=== PATIENT | male | born 1965 | race American Indian/Alaskan Native ===

== ENCOUNTER 2020-07-16 07:44 | Observation (INO) | payer OTHER ==
--- NOTE | 2020-07-16 08:02 | Event Note ---
ED Screening Note Date of service: 07/16/20 Time: 07:58 ED Screening Note: 55 yo male presen the ED with chief complaint of vision loss on the right eye that started 48 hours ago. Patient denies any weakness. Initial Triage NIH is 2. Other than visual deficits there are not other focal neurologic deficits. This initial assessment/diagnostic orders/clinical plan/treatment(s) is/are subject to change based on patients health status, clinical progression and re- assessment by fellow clinical providers in the ED. Further treatment and workup at subsequent clinical providers discretion. Patient/guardian urged not to elope from the ED as their condition may be serious if not clinically assessed and managed. Initial orders include: ED stroke protocol, triage blood sugar was elevated at 429. Discussed with ER attending Dr. Waddell who agreed with plan to work up stroke and agreed with no Code stroke being called due to symptoms being out of 24 hour window .
[2020-07-16] MEDS ORDERED: TETRACAINE 0.5% OPHTH SOLN 4ML OD STA (08:10)
[2020-07-16] MEDS ORDERED: FLUORESCEIN 1 MG STRIP OP ONE (08:10)
--- NOTE | 2020-07-16 08:11 | Emergency Department Report ---
ED General Adult HPI - General Chief complaint: Neuro Symptoms/Deficit Stated complaint: VISION LOSS IN RT EYE PUI?: No Time Seen by Provider: 07/16/20 08:02 Source: patient, RN notes reviewed Mode of arrival: Ambulatory Limitations: Physical Limitation - History of Present Illness Initial comments: The patient was evaluated in the emergency department for symptoms described in the history of present illness. He/she was evaluated in the context of the global COVID-19 pandemic, which necessitated consideration that the patient might be at risk for infection with the virus that causes COVID-19. Institutional protocols and algorithms that pertain to the evaluation of patients at risk for COVID-19 are in a state of rapid change based on information released by regulatory bodies including the CDC and federal and state organizations. These policies and algorithms were followed during the patient's care in the emergency department. Please note that these policies, procedures and recommendations changed on a rapid basis. This is a 55-year-old gentleman. He is not known to myself previously. He does not have a local primary care doctor. He presents to the ER with a complaint of 2 days painless visual loss in the right eye. He reports she has absolutely no perception of anything in his right eye. He has a mild headache. No neck pain. No chest pain. No fever. Positive dry cough. No loss of taste or smell. No focal extremity weakness/numbness. He states that over the weekend, he felt like his right lower extremity was "off", and reported that "it felt like all of my weight was in my calf." However, he does not have ataxia currently. His right-sided ocular loss of vision is constant, painless, does not radiate anywhere, does not have exacerbating, or relieving factors. -: Sudden, days(s) Location: eyes (Right eye) Consistency: constant Improves with: none Worsens with: none - Related Data Allergies Allergy/AdvReac Type Severity Reaction Status Date / Time No Known Allergies Allergy Unverified 07/16/20 07:57 ED Review of Systems ROS: Stated complaint: VISION LOSS IN RT EYE Other details as noted in HPI Constitutional: denies: fever Eyes: vision change. denies: eye pain, eye discharge Respiratory: cough. denies: shortness of breath Gastrointestinal: denies: abdominal pain Genitourinary: denies: dysuria Musculoskeletal: denies: back pain Neurological: headache. denies: weakness, numbness, paresthesias ED Past Medical Hx - Past Medical History Previous Medical History?: No - Surgical History Past Surgical History?: Yes Additional Surgical History: right thumb surgery - Social History Smoking Status: Never Smoker Substance Use Type: None ED Physical Exam - General Limitations: No Limitations General appearance: alert, in no apparent distress - Head Head exam: Present: atraumatic, normocephalic - Eye Eye exam: Present: normal appearance, EOMI, other (The right pupil does not react to light directly. The right pupil demonstrates consensual constriction. Left pupil demonstrates direct constriction.). Absent: nystagmus - ENT ENT exam: Present: normal exam, normal orophraynx, mucous membranes moist, normal external ear exam - Neck Neck exam: Present: normal inspection, full ROM. Absent: tenderness, meningismus - Respiratory Respiratory exam: Present: normal lung sounds bilaterally. Absent: respiratory distress, wheezes, rales, rhonchi, stridor, decreased breath sounds - Cardiovascular Cardiovascular Exam: Present: regular rate, normal rhythm, normal heart sounds. Absent: bradycardia, tachycardia, irregular rhythm, systolic murmur, diastolic murmur, rubs, gallop - GI/Abdominal GI/Abdominal exam: Present: soft. Absent: distended, tenderness, guarding, rebound, rigid, pulsatile mass - Rectal Rectal exam: Present: deferred - Extremities Exam Extremities exam: Present: normal inspection, full ROM, other (2+ pulses noted in the bilateral upper and lower extremities. There is no palpable cord. negative Homans sign. Muscular compartments are soft. The pelvis is stable.). Absent: pedal edema, calf tenderness - Back Exam Back exam: Present: normal inspection, full ROM. Absent: tenderness, CVA tenderness (R), CVA tenderness (L), paraspinal tenderness, vertebral tenderness - Neurological Exam Neurological exam: Present: alert, oriented X3, normal gait, other (There is no facial droop. The tongue is midline. Extraocular movements are intact b ilaterally. There is 5 out of 5 strength in bilateral upper and lower extremities. Sensation is intact to light touch bilateral upper and lower extremities. There is no past-pointing. There is no pronator drift.). Absent: motor sensory deficit - Psychiatric Psychiatric exam: Present: normal affect, normal mood, anxious - Skin Skin exam: Present: warm, dry, intact, normal color. Absent: rash ED Course Vital Signs 07/16/20 07/16/20 07:57 08:43 Temperature 98.3 F Pulse Rate 97 H 86 Respiratory 18 20 Rate Blood Pressure 171/109 Blood Pressure 147/96 [Right] O2 Sat by Pulse 97 97 Oximetry - Reevaluation(s) Reevaluation #1: 07/16/20 08:59 Differential diagnosis, including but not limited to: Retinal stroke, occipital stroke, glaucoma, retinal vein thrombosis, retinal artery thrombosis Assessment and plan: 55-year-old gentleman, with 2 days of painless monocular right-sided visual loss. He has an NIH score of 2, for complete right-sided visual loss. He is not a TPA candidate, as symptoms have been present for greater than 4.5 hours. His examination is not suggestive of a large vessel occlusion, and he is more than 24 hours out into his symptom course. Laboratory studies are pending at this time. Suspicious for afferent pupillary defect in the right pupil. Intraocular pressure with Sergio-Pen measured at 30, 31, and 18 mmHg. My bedside ocular ultrasound does not demonstrate any obvious posterior chamber bleeding, abnormal fluid collection, or retinal detachment. The optic nerve sheath appears to be 0.29 cm. I suspect that this is a stroke equivalent. However, given elevated intraocular pressures, I will discussed with ophthalmology on-call at [facility] to formulate an appropriate plan of care. Patient appears quite comfortable at this time. 07/16/20 09:11 07/16/20 09:31 discussed patient's history, physical, pertinent examination findings and CT scan findings, with ophthalmology on-call, Dr. Burgess. As anticipated, she advises emergent evaluation for possible stroke. Advises that patient may follow-up with an outpatient equipment maintenance engineer urgently once stroke work-up has been completed. Hospital physician, Dr. Adin Meyers to admit Laboratory studies demonstrate hyperglycemia, with pseudohyponatremia. Patient amenable to admission/hospitalization. Aspirin and insulin therapy ordered. Denies fever, loss of taste and smell, significant shortness of breath. Do not have a high suspicion for COVID-19 at this time. ED Medical Decision Making - Lab Data Result diagrams: 07/16/20 08:16 07/16/20 08:18 Vital Signs 07/16/20 07/16/20 07:57 08:43 Temperature 98.3 F Pulse Rate 97 H 86 Respiratory 18 20 Rate Blood Pressure 171/109 Blood Pressure 147/96 [Right] O2 Sat by Pulse 97 97 Oximetry Lab Results 07/16/20 07/16/20 07/16/20 Range/Units 07:59 08:16 08:16 WBC 8.1 (4.5-11.0) K/mm3 RBC 4.87 (3.65-5.03) M/mm3 Hgb 14.3 (11.8-15.2) gm/dl Hct 42.2 (35.5-45.6) % MCV 87 (84-94) fl MCH 29 (28-32) pg MCHC 34 (32-34) % RDW 13.3 (13.2-15.2) % Plt Count 208 (140-440) K/mm3 Lymph % (Auto) 23.5 (13.4-35.0) % [place] % (Auto) 15.7 H (0.0-7.3) % Eos % (Auto) 0.8 (0.0-4.3) % Baso % (Auto) 0.3 (0.0-1.8) % Lymph # (Auto) 1.9 (1.2-5.4) K/mm3 [place] # (Auto) 1.3 H (0.0-0.8) K/mm3 Eos # (Auto) 0.1 (0.0-0.4) K/mm3 Baso # (Auto) 0.0 (0.0-0.1) K/mm3 Seg Neutrophils % 59.7 (40.0-70.0) % Seg Neutrophils # 4.8 (1.8-7.7) K/mm3 PT 12.6 (12.2-14.9) Sec. INR 0.96 (0.87-1.13) APTT 27.9 (24.2-36.6) Sec. Thrombin Time 15.3 (15.1-19.6) Sec. POC Glucose 429 H (70-105) mg/dL - EKG Data -: EKG Interpreted by Co EKG shows normal: sinus rhythm Rate: normal - EKG Data When compared to previous EKG there are: previous EKG unavailable - Radiology Data Radiology results: report reviewed, image reviewed CT HEAD WITHOUT CONTRAST INDICATION / CLINICAL INFORMATION: Stroke symptoms. TECHNIQUE: All CT scans at this location are performed using CT dose reduction for ALARA by means of automated exposure control. COMPARISON: None available. FINDINGS: HEMORRHAGE: No evidence of intracranial hemorrhage or extra-axial fluid collection. EXTRA-AXIAL SPACES: Cortical sulci, sylvian fissures and basilar cisterns have an unremarkable appearance. VENTRICULAR SYSTEM: The third and lateral ventricles are of normal size and configuration. CEREBRAL PARENCHYMA: Extensive periventricular and deep white matter lucencies noted consistent with advanced microvascular ischemic change in excess of that expected the patient's age of 55 years. There is evidence of remote small deep infarction in the anterior lateral aspect of the left thalamus. No additional areas of abnormal brain parenchymal attenuation are identified. MIDLINE SHIFT OR HERNIATION: There is no mass effect. CEREBELLUM / BRAINSTEM: Brainstem and cerebellum have an unremarkable appearance. MIDLINE STRUCTURES:No abnormalities of the pituitary gland or pineal region are identified. INTRACRANIAL VESSELS:No abnormalities are identified on this noncontrast head CT. ORBITS: visualized portions of the orbits have an unremarkable appearance. SOFT TISSUES of HEAD: No significant abnormality. CALVARIUM: Evaluation of bone windows reveals no abnormalities. PARANASAL SINUSES / MASTOID AIR CELLS: Visualized portions of the paranasal sinuses are free from inflammatory mucosal disease. Mastoid air cells are normally pneumatized. ADDITIONAL FINDINGS: None. IMPRESSION: 1. Advanced microvascular ischemic change. 2. Remote small deep infarction left thalamus. 3. No acute intracranial abnormalities are identified. Signer Name: Kenyon Diez MD Signed: 07/16/2020 7:48 AM Workstation Name: [email or web address] X-ray the chest is negative for acute findings. Critical care attestation.: If time is entered above; I have spent that time in minutes in the direct care of this critically ill patient, excluding procedure time. ED Disposition Clinical Impression: Hyperglycemia Loss, vision, sudden Qualifiers: Laterality: right Qualified Code(s): H53.131 - Sudden visual loss, right eye CVA (cerebral vascular accident) Qualifiers: CVA mechanism: unspecified Qualified Code(s): I63.9 - Cerebral infarction, unspecified Disposition: DC-09 OP ADMIT IP TO THIS HOSP Is pt being admited?: Yes Does the pt Need Aspirin: No Condition: Good - Assessment Assessment Interval: Baseline - Level of Consciousness 1a. Level of Consciousness: alert/keenly responsive - LOC Questions 1b. LOC Questions: answers both correctly - LOC Command 1c. LOC Commands: performs tasks correctly - Best Gaze 2. Best Gaze: normal - Visual 3. Visual: complete hemianopia - Facial Palsy 4. Facial Palsy: normal symmetrical movement - Motor Arm 5a. Motor Arm Left: no drift 5b. Motor Arm Right: no drift - Motor Leg 6a. Motor Leg Left: no drift 6b. Motor Leg Right: no drift - Limb Ataxia 7. Limb Ataxia: absent - Sensory 8. Sensory: normal - Best Language 9. Best Language: no aphasia - Dysarthria 10. Dysarthria: normal - Extinction and Inattention 11. Extinction/Inattention: no abnormality - Scoring Total Score: 2 Stroke Severity: Minor Stroke
[2020-07-16 08:28] LABS: Basophils % (Auto) 0.3 % (0.0-1.8); Eosinophils # (Auto) 0.1 K/mm3 (0.0-0.4); Eosinophils % (Auto) 0.8 % (0.0-4.3); Hematocrit 42.2 % (35.5-45.6); Hemoglobin 14.3 gm/dl (11.8-15.2); Lymphocytes # (Auto) 1.9 K/mm3 (1.2-5.4); Lymphocytes % (Auto) 23.5 % (13.4-35.0); Mean Corpuscular HGB Conc 34 % (32-34); Mean Corpuscular Volume 87 fl (84-94); Monocytes # (Auto) 1.3 K/mm3 (0.0-0.8); Monocytes % (Auto) 15.7 % (0.0-7.3); Platelet Count 208 K/mm3 (140-440); Red Blood Count 4.87 M/mm3 (3.65-5.03); Red Cell Distribution Width 13.3 % (13.2-15.2)
[2020-07-16 08:38] LABS: INR 0.96 (0.87-1.13)
[2020-07-16 08:39] LABS: Partial Thromboplastin Time 27.9 Sec. (24.2-36.6); Thrombin Time 15.3 Sec. (15.1-19.6)
--- NOTE | 2020-07-16 08:52 | Cat Scan Report ---
CT HEAD WITHOUT CONTRAST INDICATION / CLINICAL INFORMATION: Stroke symptoms. TECHNIQUE: All CT scans at this location are performed using CT dose reduction for ALARA by means of automated e xposure control. COMPARISON: None available. FINDINGS: HEMORRHAGE: No evidence of intracranial hemorrhage or extra-axial fluid collection. EXTRA-AXIAL SPACES: Cortical sulci, sylvian fissures and basilar cisterns have an unremarkable appear ance. VENTRICULAR SYSTEM: The third and lateral ventricles are of normal size and configuration. CEREBRAL PARENCHYMA: Extensive periventricular and deep white matter lucencies noted consistent with advanced microvascular ischemic change in excess of that expected the patient's age of 55 years. Ther e is evidence of remote small deep infarction in the anterior lateral aspect of the left thalamus. No additional areas of abnormal brain parenchymal attenuation are identified. MIDLINE SHIFT OR HERNIATION: There is no mass effect. CEREBELLUM / BRAINSTEM: Brainstem and cerebellum have an unremarkable appearance. MIDLINE STRUCTURES:No abnormalities of the pituitary gland or pineal region are identified. INTRACRANIAL VESSELS:No abnormalities are identified on this noncontrast head CT. ORBITS: visualized portions of the orbits have an unremarkable appearance. SOFT TISSUES of HEAD: No significant abnormality. CALVARIUM: Evaluation of bone windows reveals no abnormalities. PARANASAL SINUSES / MASTOID AIR CELLS: Visualized portions of the paranasal sinuses are free from inf lammatory mucosal disease. Mastoid air cells are normally pneumatized. ADDITIONAL FINDINGS: None. IMPRESSION: 1. Advanced microvascular ischemic change. 2. Remote small deep infarction left thalamus. 3. No acute intracranial abnormalities are identified. Signer Name: Kenyon Diez MD Signed: 07/16/2020 8:48 AM Workstation Name: [id number]
[2020-07-16 09:27] LABS: BUN/Creatinine Ratio 11; Blood Urea Nitrogen 10 mg/dL (9-20); Calcium 9.2 mg/dL (8.4-10.2); Hemolysis Index 4
[2020-07-16] MEDS ORDERED: INSULIN REGULAR, HUMAN 100 UNITS/1 ML IV ONE (09:29)
[2020-07-16] MEDS ORDERED: ASPIRIN 81 MG TAB CHEW PO ONE (09:29)
--- NOTE | 2020-07-16 10:04 | XRay Report ---
CHEST 1 VIEW 07/16/2020 8:58 AM INDICATION / CLINICAL INFORMATION: cough. COMPARISON: None available. FINDINGS: SUPPORT DEVICES: None. HEART / MEDIASTINUM: No significant abnormality. LUNGS / PLEURA: No significant pulmonary or pleural abnormality. No pneumothorax. ADDITIONAL FINDINGS: Moderate arthrosis of the right shoulder and AC joint. IMPRESSION: 1. No acute findings. Signer Name: Joe Guerra MD Signed: 07/16/2020 9:59 AM Workstation Name: [id number]
[2020-07-16] MEDS ORDERED: ACETAMINOPHEN 325 MG TAB PO PRN (10:36)
[2020-07-16] MEDS ORDERED: METOCLOPRAMIDE 10 MG TAB PO PRN (10:36)
[2020-07-16] MEDS ORDERED: ONDANSETRON 4 MG/2 ML INJ IV PRN (10:36)
[2020-07-16] MEDS ORDERED: MAGNESIUM HYDROXIDE (MOM) ORAL LIQD UDC PO PRN (10:36)
[2020-07-16] MEDS ORDERED: PROMETHAZINE 25 MG RECT SUPP PR PRN (10:36)
[2020-07-16] MEDS ORDERED: DEXTROSE 50% IN WATER (25GM) 50 ML SYRINGE IV PRN (10:36)
--- NOTE | 2020-07-16 10:52 | History and Physical Report ---
History of Present Illness Date of admission: 07/16/20 09:34 History of present illness: This is a 55-year-old gentleman with no known medical history who presented to the emergency department on 07/16 with complaints of a 2-day history of painless visual loss in his right eye, mild headache, occasional dry cough and bilateral lower extremity ataxia and right hand numbness experienced on 07/13. Upon arrival to the emergency department patient had hypertensive urgency at 171/109. Work- up in the emergency department revealed hyperglycemia (BG 409), pseudohyponatremia (sodium 129) hypochloremia at 90. Patient underwent a CT head which showed microvascular ischemic changes and a remote small deep infarct in the left thalamus. Telemetry neurology was consulted and stroke protocol was initiated. Upon further examination of his right eye in the emergency department he was found to have elevated intraocular pressures and ophthalmology recommended outpatient follow-up at [facility] post discharge. His NIHSS in the e mergency department was 2. Patient will be admitted to the hospital service with a consult to neurology for further work-up. Advance care planning conducted in the emergency department. No prior visits to review. Past History Past Medical History: No medical history Past Surgical History: Other (Stitching to right thumb after injury) Social history: , lives with family, full code. denies: smoking, alcohol abuse, prescription drug abuse, IV drug use Family history: cancer, diabetes, hypertension, other (Heart failure) Medications and Allergies Allergies Allergy/AdvReac Type Severity Reaction Status Date / Time No Known Allergies Allergy Unverified 07/16/20 07:57 Active Meds: Active Medications Acetaminophen (Acetaminophen 325 Mg Tab) 650 mg PO Q4H PRN PRN Reason: Pain, Mild (1-3) Aspirin (Aspirin 325 Mg Tab) 325 mg PO QDAY LIAM Atorvastatin Calcium (Atorvastatin 40 Mg Tab) 40 mg PO QHS LIAM Bisacodyl (Bisacodyl 10 Mg Rect Supp) 10 mg VA QDAY PRN PRN Reason: Constipation Dextrose (Dextrose 50% In Water (25gm) 50 Ml Syringe) 50 ml IV Q30MIN PRN; Protocol PRN Reason: Hypoglycemia Docusate Sodium (Docusate Sodium 100 Mg Cap) 100 mg PO BID LIAM Famotidine (Famotidine 20 Mg Tab) 20 mg PO BID ILAM Sodium Chloride (Nacl 0.45% 1000 Ml) 1,000 mls @ 75 mls/hr IV DIRECT LIAM Stop: 07/17/20 00:19 Insulin Human Regular (Insulin Regular, Human 100 Units/1 Ml) 0 units SUB-Q ACHS LIAM; Protocol Magnesium Hydroxide (Magnesium Hydroxide (Mom) Oral Liqd Udc) 30 ml PO Q4H PRN PRN Reason: Constipation Metoclopramide HCl (Metoclopramide 10 Mg Tab) 10 mg PO Q6H PRN PRN Reason: Nausea And Vomiting Ondansetron HCl (Ondansetron 4 Mg/2 Ml Inj) 4 mg IV Q8H PRN PRN Reason: Nausea And Vomiting Promethazine HCl (Promethazine 25 Mg Rect Supp) 25 mg VA Q6H PRN PRN Reason: Nausea And Vomiting Sodium Chloride (Sodium Chloride 0.9% 10 Ml Flush Syringe) 10 ml INJ PRN PRN PRN Reason: LINE FLUSH Review of Systems Constitutional: no weight loss, no weight gain, no fever, no chills, no sweats, no night sweats, no anorexia, no fatigue, no weakness, no chronic headaches Eyes: right: loss of vision Ears, nose, mouth and throat: no ear pain, no ear discharge, no tinnitis, no decreased hearing, no nose pain, no nasal congestion, no nasal discharge, no sinus pressure, no sinus pain, no epistaxis, no bleeding gums, no sore throat, no post-nasal drip, no vertigo Cardiovascular: no chest pain, no orthopnea, no palpitations, no rapid/irregular heart beat, no edema, no syncope, no lightheadedness, no shortness of breath, no dyspnea on exertion, no high blood pressure, no leg edema Respiratory: no cough, no cough with sputum, no excessive sputum, no hemoptysis, no shortness of breath, no dyspnea on exertion, no congestion, no wheezing, no pain on inspiration Gastrointestinal: no abdominal pain, no nausea, no vomiting, no diarrhea, no constipation, no change in bowel habits, no hematemesis, no coffee ground emes is, no BRBPR, no melena, no hematochezia, no loss of appetite, no heartburn Genitourinary Male: no dysuria, no hematuria, no flank pain, no discharge, no urinary frequency, no urinary hesitancy, no nocturia, no incontinence, no polyuria Rectal: no pain, no incontinence, no bleeding, no itching, no hemorrhoids Musculoskeletal: arm numbness/tingling, leg numbness/tingling, no neck stiffness, no neck pain, no shooting arm pain, no low back pain, no shooting leg pain, no morning stiffness, no muscle weakness, no muscle cramps, no limitation of motion, no frequent falls, no fractures, no loss of height, no prior amputations Integumentary: no pruritis, no redness, no sores, no wounds, no jaundice, no boils, no blisters, no dryness Neurological: numbness (Right hand), ataxia (Bilateral lower extremities), headaches (X1 after loss of vision), sensory deficit, loss of vision (To right eye), no head injury, no transient paralysis, no vertigo, no confusion, no memory loss, no changes in smell/taste Psychiatric: no anxiety, no memory loss, no insomnia, no hypersomnia, no change in appetite, no hallucinations, no paranoia, no depression, no hopelessness Endocrine: no polyphagia, no excessive thirst, no polydipsia, no polyuria, no nocturia, no flushing, no palpatations Hematologic/Lymphatic: no easy bruising, no easy bleeding Allergic/Immunologic: no allergic rhinitis, no wheezing, no persistent infections, no anaphylaxis Exam - Constitutional Vitals: Temp Pulse Resp BP Pulse Ox 98.3 F 86 20 147/96 97 07/16/20 07:57 07/16/20 08:43 07/16/20 08:43 07/16/20 08:43 07/16/20 08:43 General appearance: Present: no acute distress - EENT Eyes: Absent: PERRL (Left eye: Pupil round, reactive to light and accommodation with intact EOM. Right eye with vision loss, pupil round but not reactive to light or accommodation without intact EOM), EOM intact, scleral icterus, conjunctival injection, miosis, mydriasis ENT: hearing intact, clear oral mucosa, poor dentition - Neck Neck: Present: normal ROM - Respiratory Respiratory effort: normal Respiratory: bilateral: CTA - Cardiovascular Rhythm: regular Heart Sounds: Present: S1 & S2. Absent: systolic murmur, diastolic murmur - Extremities Extremities: no ischemia, pulses intact, pulses symmetrical, No edema, normal temperature, normal color, Full ROM Peripheral Pulses: within normal limits - Abdominal General gastrointestinal: Present: soft, non-tender, non-distended, normal bowel sounds - Integumentary Integumentary: Present: clear, warm, dry - Musculoskeletal Musculoskeletal: strength equal bilaterally - Psychiatric Psychiatric: appropriate mood/affect, memory intact, cooperative - Neurologic Neurologic: CNII-XII intact, no focal deficits, moves all extremities - Allied Health Allied health notes reviewed: nursing HEART Score - HEART Score Troponin: Troponin T < 0.010 ng/mL (0.00-0.029) 07/16/20 08:18 Results - Labs CBC & Chem 7: 07/16/20 08:16 07/16/20 08:18 Labs: Laboratory Last Values WBC 8.1 K/mm3 (4.5-11.0) 07/16/20 08:16 RBC 4.87 M/mm3 (3.65-5.03) 07/16/20 08:16 Hgb 14.3 gm/dl (11.8-15.2) 07/16/20 08:16 Hct 42.2 % (35.5-45.6) 07/16/20 08:16 MCV 87 fl (84-94) 07/16/20 08:16 MCH 29 pg (28-32) 07/16/20 08:16 MCHC 34 % (32-34) 07/16/20 08:16 RDW 13.3 % (13.2-15.2) 07/16/20 08:16 Plt Count 208 K/mm3 (140-440) 07/16/20 08:16 Lymph % (Auto) 23.5 % (13.4-35.0) 07/16/20 08:16 [place] % (Auto) 15.7 % (0.0-7.3) H 07/16/20 08:16 Eos % (Auto) 0.8 % (0.0-4.3) 07/16/20 08:16 Baso % (Auto) 0.3 % (0.0-1.8) 07/16/20 08:16 Lymph # (Auto) 1.9 K/mm3 (1.2-5.4) 07/16/20 08:16 [place] # (Auto) 1.3 K/mm3 (0.0-0.8) H 07/16/20 08:16 Eos # (Auto) 0.1 K/mm3 (0.0-0.4) 07/16/20 08:16 Baso # (Auto) 0.0 K/mm3 (0.0-0.1) 07/16/20 08:16 Seg Neutrophils % 59.7 % (40.0-70.0) 07/16/20 08:16 Seg Neutrophils # 4.8 K/mm3 (1.8-7.7) 07/16/20 08:16 PT 12.6 Sec. (12.2-14.9) 07/16/20 08:16 INR 0.96 (0.87-1.13) 07/16/20 08:16 APTT 27.9 Sec. (24.2-36.6) 07/16/20 08:16 Thrombin Time 15.3 Sec. (15.1-19.6) 07/16/20 08:16 Sodium 129 mmol/L (137-145) L 07/16/20 08:18 Potassium 4.3 mmol/L (3.6-5.0) 07/16/20 08:18 Chloride 90.0 mmol/L (98-107) L 07/16/20 08:18 Carbon Dioxide 29 mmol/L (22-30) 07/16/20 08:18 Anion Gap 14 mmol/L 07/16/20 08:18 BUN 10 mg/dL (9-20) 07/16/20 08:18 Creatinine 0.9 mg/dL (0.8-1.3) 07/16/20 08:18 Estimated GFR > 60 ml/min 07/16/20 08:18 BUN/Creatinine Ratio 11 % 07/16/20 08:18 Glucose 490 mg/dL (75-100) H 07/16/20 08:18 POC Glucose 429 mg/dL (70-105) H 07/16/20 07:59 Calcium 9.2 mg/dL (8.4-10.2) 07/16/20 08:18 Magnesium 1.90 mg/dL (1.7-2.3) 07/16/20 08:18 Total Creatine Kinase 65 units/L (55-170) 07/16/20 08:18 Troponin T < 0.010 ng/mL (0.00-0.029) 07/16/20 08:18 - Imaging and Cardiology CT Scan - head: report reviewed MRI - head: report reviewed Imaging and Cardiology: -07/16 CT head without contrast shows advanced microvascular ischemic changes, remote small deep infarction of the left thalamus, and no acute intracranial abnormalities identified -07/16 MRA/MRV head without contrast shows focal areas of narrowing suggested in the carotid foramen regions bilaterally, there is a mild narrowing in the communicating portions of both internal carotid arteries which were not felt to be hemodynamically significant -07/16 MRI/MRV neck without contrast shows no significant stenosis appreciated on this unenhanced MRI of the neck -07/16 MRI brain contrast shows remote left thalamic lacunar infarct with chronic microvascular disease -07/16 SABINA pending Assessment and Plan Assessment and plan: CVA -07/16 CT head shows advanced microvascular ischemic change in correlation to age, remote small deep infarction left thalamus, no acute intracranial abnormalities are identified. -Neurology consulted, appreciate recommendation -S/p patient 325mg aspirin in the ED -Initiated aspirin and statin therapy -Stroke protocol initiated -07/16 lipid panel pending -07/16 ST/OT/PT consulted -Permissive hypertension for 24 to 48 hours -Maintain euglycemia and euthymia -Accu-Cheks every 4 for 24 hours then AC at bedtime -Aspiration/fall/seizure precautions -07/16 CT head without contrast shows advanced microvascular ischemic changes, remote small deep infarction of the left thalamus, and no acute intracranial abnormalities identified -07/16 MRA/MRV head without contrast shows focal areas of narrowing suggested in the carotid foramen regions bilaterally, there is a mild narrowing in the communicating portions of both internal carotid arteries which were not felt to be hemodynamically significant -07/16 MRI/MRV neck without contrast shows no significant stenosis appreciated on this unenhanced MRI of the neck -07/16 MRI brain without contrast shows remote left thalamic lacunar infarct with chronic microvascular disease -07/16 SABINA pending Hyperglycemia -07/16 hemoglobin A1c pending -Accu-Cheks q. 24 for 24 hours then AC at bedtime -SSI -CC diet pending ST evaluation -Hypoglycemia protocol Hyponatremia/pseudohyponatremia -Presented with a sodium of 129 -Corrected sodium 135 -Trend sodium Hypochloremia -Presented with a chloride of 90 -Trend BMP DVT prophylaxis -GI prophylaxis -SCDs to bilateral lower extremities while in bed -Lovenox subcu Full code VTE prophylaxis?: Chemical, Mechanical Plan of care discussed with patient/family: Yes
--- NOTE | 2020-07-16 10:52 | Consultation ---
Medications and Allergies Allergies Allergy/AdvReac Type Severity Reaction Status Date / Time No Known Allergies Allergy Unverified 07/16/20 07:57 Active Meds: Active Medications Acetaminophen (Acetaminophen 325 Mg Tab) 650 mg PO Q4H PRN PRN Reason: Pain, Mild (1-3) Aspirin (Aspirin 325 Mg Tab) 325 mg PO QDAY LIAM Atorvastatin Calcium (Atorvastatin 40 Mg Tab) 40 mg PO QHS LIAM Bisacodyl (Bisacodyl 10 Mg Rect Supp) 10 mg CA QDAY PRN PRN Reason: Constipation Dextrose (Dextrose 50% In Water (25gm) 50 Ml Syringe) 50 ml IV Q30MIN PRN; Protocol PRN Reason: Hypoglycemia Docusate Sodium (Docusate Sodium 100 Mg Cap) 100 mg PO BID LIAM Famotidine (Famotidine 20 Mg Tab) 20 mg PO BID LIAM Insulin Human Regular (Insulin Regular, Human 100 Units/1 Ml) 0 units SUB-Q ACHS LIAM; Protocol Magnesium Hydroxide (Magnesium Hydroxide (Mom) Oral Liqd Udc) 30 ml PO Q4H PRN PRN Reason: Constipation Metoclopramide HCl (Metoclopramide 10 Mg Tab) 10 mg PO Q6H PRN PRN Reason: Nausea And Vomiting Ondansetron HCl (Ondansetron 4 Mg/2 Ml Inj) 4 mg IV Q8H PRN PRN Reason: Nausea And Vomiting Promethazine HCl (Promethazine 25 Mg Rect Supp) 25 mg CA Q6H PRN PRN Reason: Nausea And Vomiting Sodium Chloride (Sodium Chloride 0.9% 10 Ml Flush Syringe) 10 ml INJ PRN PRN PRN Reason: LINE FLUSH Physical Examination - Vital Signs Vital Signs: Vital Signs Temp Pulse Resp BP Pulse Ox 98.3 F 97 H 18 171/109 97 07/16/20 07:57 07/16/20 07:57 07/16/20 07:57 07/16/20 07:57 07/16/20 07:57 Results - Laboratory Findings CBC and BMP: 07/16/20 08:16 07/16/20 08:18 Abnormal Lab Findings: Abnormal Labs 07/16/20 07/16/20 07/16/20 07:59 08:16 08:18 [place] % (Auto) 15.7 H [place] # (Auto) 1.3 H Sodium 129 L Chloride 90.0 L Glucose 490 H POC Glucose 429 H Assessment and Plan [facility] Tele[facility]rology Consult Services Stat Consult Date of Service: 07/16/2020 09:33:33 Impression: I63.0 - 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 Recommendations: Antiplatelet Therapy Imaging Studies: MRI Head with and Without Contrast MRA Head and Neck Without Contrast When Available - Stroke Protocol Echocardiogram - Transthoracic Echocardiogram Therapies: Physical Therapy, Occupational Therapy, Speech Therapy Assessment When Applicable Disposition: Neurology Follow Up Recommended Sign Out: Discussed with Emergency Department Provider Chief Complaint: R eye vision abnormality History of Present Illness: Patient is a 55 year old Male. 55 yo M h/o likely undiagnosed HTN, DM p/w R eye vision abnormality w onset 07/14. PT c/o R hand numbness for a few days. He had flu symptoms recently, was taking theraflu. Pt c/o R side headache. Anticoagulant use: No Antiplatelet use: No Examination: BP(172/109), Pulse(85), Blood Glucose(unknown) 1A: Level of Consciousness - Alert; keenly responsive + 0 1B: Ask Month and Age - Both Questions Right + 0 1C: Blink Eyes & Squeeze Hands - Performs Both Tasks + 0 2: Test Horizontal Extraocular Movements - Normal + 0 3: Test Visual Gates - Complete Hemianopia + 2 4: Test Facial Palsy (Use Grimace if Obtunded) - Normal symmetry + 0 5A: Test Left Arm Motor Drift - No Drift for 10 Seconds + 0 5B: Test Right Arm Motor Drift - No Drift for 10 Seconds + 0 6A: Test Left Leg Motor Drift - No Drift for 5 Seconds + 0 6B: Test Right Leg Motor Drift - No Drift for 5 Seconds + 0 7: Test Limb Ataxia (FNF/Heel-Whipple) - No Ataxia + 0 8: Test Sensation - Normal; No sensory loss + 0 9: Test Language/Aphasia - Normal; No aphasia + 0 10: Test Dysarthria - Normal + 0 11: Test Extinction/Inattention - No abnormality + 0 NIHSS Score: 2 Patient/Family was informed the Neurology Consult would occur via TeleHealth consult by way of interactive audio and video telecommunications and consented to receiving care in this manner. Due to the immediate potential for life-threatening deterioration due to underlying acute neurologic illness, I spent 30 minutes providing critical care. This time includes time for face to face visit via telemedicine, review of m edical records, imaging studies and discussion of findings with providers, the patient and/or family. Dr Shanda Crowley [facility] Case [id number]
[2020-07-16] MEDS ORDERED: SODIUM CHLORIDE 0.45% 1000 ML 1,000 ML IV SCH (11:00)
[2020-07-16 11:23] LABS: Chol/HDL Ratio 6.81 %
[2020-07-16] MEDS: INSULIN REGULAR, HUMAN 100 UNITS/1 ML SUB-Q SCH ×5 (13:23→22:39)
--- NOTE | 2020-07-16 14:06 | Magnetic Resonance Report ---
MR MRA/MRV head wo con INDICATION / CLINICAL INFORMATION: 55 years Male; MAIN. TECHNIQUE: 3-D time of flight. NASCET type criteria used to evaluate stenoses. Some motion artifact present. COMPARISON: None available. FINDINGS: INTERNAL CAROTID ARTERIES: Focal areas of narrowing are suggested in the carotid foramen regions bila terally-these are common locations for flow artifact. CTA of the head may be helpful for further eval uation. Areas of mild narrowing are seen in the communicating portions of both internal carotid arteries, not felt to be hemodynamically significant. VERTEBROBASILAR SYSTEM: No significant narrowing appreciated. DISTAL BRANCHES: Distal branches of the anterior, middle, and posterior cerebral arteries are fairly symmetric in appearance and number. ANEURYSM: None identified. IMPRESSION: Some areas of narrowing suggested in the internal carotid arteries bilaterally, some of which may be related to flow artifact. CTA of the head may be helpful for further evaluation, if clinically warran kinjal. Signer Name: Delmar Thomas MD, III Signed: 07/16/2020 2:02 PM Workstation Name: [id number]
--- NOTE | 2020-07-16 14:07 | Magnetic Resonance Report ---
MR brain wo/w con INDICATION / CLINICAL INFORMATION: Stroke.. TECHNIQUE: Multiplanar, multisequence MR images of the brain were obtained. COMPARISON: CT head 07/16/2020 FINDINGS: INTRACRANIAL: No restricted diffusion. No hemorrhage. Ventricular caliber is normal. No extra-axial c ollection. No mass. No herniation. Major intracranial vascular flow voids are preserved. Remote left thalamic lacunar infarction. Periventricular and centrum semiovale T2 white matter hyperintensities m ost consistent with sequela of chronic microvascular disease. ORBITS: No significant abnormality of visualized orbits. SINUSES / MASTOIDS: No significant abnormality of visualized sinuses and mastoid air cells. ADDITIONAL FINDINGS: None. IMPRESSION: 1. No acute intracranial abnormality. Signer Name: Song Goldman MD Signed: 07/16/2020 2:03 PM Workstation Name: [id number]
--- NOTE | 2020-07-16 14:12 | Magnetic Resonance Report ---
MR MRA/MRV neck wo con INDICATION / CLINICAL INFORMATION: 55 years Male; MAIN. TECHNIQUE: 2-D time of flight performed prior to contrast. NASCET criteria used for stenosis evaluati on. COMPARISON: None available. FINDINGS: ARCH: Aortic arch and proximal great vessels are not well visualized on this exam. However, a bovine type arch is suggested. CAROTID ARTERIES: The visualized common and internal carotid arteries are widely patent. VERTEBRAL ARTERIES: Slight left dominant vertebral system seen. No significant stenosis appreciated, although the origin of the right vertebral artery is difficult to visualize. IMPRESSION: No significant stenosis appreciated on this unenhanced MRA of the neck. Signer Name: Delmar Thomas MD, III Signed: 07/16/2020 2:08 PM Workstation Name: [id number]
--- NOTE | 2020-07-16 15:13 | Consultation ---
History of Present Illness Consult date: 07/16/20 Reason for Consult: R Visual Loss Chief complaint: Right Eye Blindness History of present illness: 55 yo male with no known medical history who presents with acute painless loss of vision of the right eye. He cannot see anything from his right eye. He cannot tell light from dark with his right eye. Onset was on Monday night (07/14/20). He denies any other neurologic symptoms at this time and he notes no headache, scalp tenderness or jaw claudication. ; Past History Past Medical History: No medical history Past Surgical History: Other (Stitching to right thumb after injury) Social history: , lives with family, full code. denies: smoking, alcohol abuse, prescription drug abuse, IV drug use Family history: cancer, diabetes, hypertension, other (Heart failure) Medications and Allergies Allergies Allergy/AdvReac Type Severity Reaction Status Date / Time No Known Allergies Allergy Unverified 07/16/20 07:57 Active Meds: Active Medications Acetaminophen (Acetaminophen 325 Mg Tab) 650 mg PO Q4H PRN PRN Reason: Pain, Mild (1-3) Aspirin (Aspirin 325 Mg Tab) 325 mg PO QDAY LIAM Atorvastatin Calcium (Atorvastatin 40 Mg Tab) 40 mg PO QHS LIAM Bisacodyl (Bisacodyl 10 Mg Rect Supp) 10 mg [place] QDAY PRN PRN Reason: Constipation Dextrose (Dextrose 50% In Water (25gm) 50 Ml Syringe) 50 ml IV Q30MIN PRN; Protocol PRN Reason: Hypoglycemia Docusate Sodium (Docusate Sodium 100 Mg Cap) 100 mg PO BID LIAM Enoxaparin Sodium (Enoxaparin 60 Mg/0.6 Ml Inj) 60 mg SUB-Q QDAY LIAM; Protocol Famotidine (Famotidine 20 Mg Tab) 20 mg PO BID LIAM Sodium Chloride (Nacl 0.45% 1000 Ml) 1,000 mls @ 75 mls/hr IV DIRECT LIAM Stop: 07/17/20 00:19 Insulin Human Regular (Insulin Regular, Human 100 Units/1 Ml) 0 units SUB-Q ACHS LIAM; Protocol Last Admin: 07/16/20 14:17 Dose: 4 units Documented by: Magnesium Hydroxide (Magnesium Hydroxide (Mom) Oral Liqd Udc) 30 ml PO Q4H PRN PRN Reason: Constipation Metoclopramide HCl (Metoclopramide 10 Mg Tab) 10 mg PO Q6H PRN PRN Reason: Nausea And Vomiting Ondansetron HCl (Ondansetron 4 Mg/2 Ml Inj) 4 mg IV Q8H PRN PRN Reason: Nausea And Vomiting Promethazine HCl (Promethazine 25 Mg Rect Supp) 25 mg IL Q6H PRN PRN Reason: Nausea And Vomiting Sodium Chloride (Sodium Chloride 0.9% 10 Ml Flush Syringe) 10 ml IV PRN PRN PRN Reason: LINE FLUSH Review of Systems All systems: negative (as per HPI;) Physical Examination - Vital Signs Vital Signs: Vital Signs Temp Pulse Resp BP Pulse Ox 98.3 F 97 H 18 171/109 97 07/16/20 07:57 07/16/20 07:57 07/16/20 07:57 07/16/20 07:57 07/16/20 07:57 - Physical Exam Narrative exam: Gen: nad, well-nourished; Head: normocephalic; Eyes: no gaze deviation; no ptosis; ENT: normal vocalization; CVS: warm and well-perfused; Pulm: no respiratory distress; GI: non-distended; Ext: no cyanosis at distal extremities; Skin: no acute rash at distal extremities; Heme: no pathologic bruising or ecchymosis at distal extremities; Neuro: alert, oriented to name, age, month, year, surroundings, no dysarthria, no aphasia, CN 2 - OD: no light/dark differentiation; pupil 6 mm fixed, nonreactive; OS: reactive, visual dietrich intact; CN 3, 4, 6 - EOMI, CN 5 - facial sensation symmetric to light touch, CN 7 - facial movement symmetric except right orolabial slight droop w/ activation, CN 8 - hearing grossly intact, CN 9, 10 - uvula midline, CN 11 - shrug symmetric, CN 12 - tongue midline; Motor - at least 4/5 in all exts; Sensory - light touch symmetric, Cerebellar - fnf /hts intact, Gait - deferred secondary to fall risk; NIHSS (1a.) Level of Consciousness:0 (1b.) LOC Questions:0 (1c.) LOC Commands:0 (2.) Best Gaze:0 (3.) Visual:2 (4.) Facial Palsy:1 (5a.) Motor Arm, Left:0 (5b.) Motor Arm, Right:0 (6a.) Motor Leg, Left:0 (6b.) Motor Leg, Right:0 (7.) Limb Ataxia:0 (8.) Sensory:0 (9.) Best Language:0 (10.) Dysarthria:0 (11.) Extinction and Inattention:0 NIHSS Total Score: 3 Results - Laboratory Findings CBC and BMP: 07/16/20 08:16 07/16/20 08:18 Abnormal Lab Findings: Abnormal Labs 07/16/20 07/16/20 07/16/20 07:59 08:16 08:16 Island % (Auto) 15.7 H Island # (Auto) 1.3 H Sodium Chloride Glucose POC Glucose 429 H Hemoglobin A1c Triglycerides 223 H Cholesterol 218 H LDL Cholesterol Direct 145 H HDL Cholesterol 32 L 07/16/20 07/16/20 08:16 08:18 Island % (Auto) Island # (Auto) Sodium 129 L Chloride 90.0 L Glucose 490 H POC Glucose Hemoglobin A1c 14.3 H Triglycerides Cholesterol LDL Cholesterol Direct HDL Cholesterol Assessment and Plan 55 yo male presenting with acute painless monocular right eye blindness with MR Brain that is negative for an acute process. New diagnosis of htn, dm, hld during this hospitalization. 1. Right Monocular Painless Blindness - aspirin 325 mg po qday, plavix 75 mg po qday x 21 days, statin therapy for a goal LDL of 70; per radiology, ordered cta head w/ wo contrast as mra head was not reliable; long-term risk factor modification of htn, dm, hld; ot evaluation for low vision therapy; ophthalmology evaluation (Dr. Meyers will speak to Ophthalmology today) to help differentiate crao vs. crvo vs. retinal detachment vs. diabetic optic neuropathy vs. rarely vitreous hemorrhage; recommend tte, parmjit, and loop recorder during this hospitalization assuming crao; recommend hypercoag workup/infectious/inflammatory states if crvo.
[2020-07-16] MEDS: CLOPIDOGREL 75 MG TAB PO SCH (17:21)
--- NOTE | 2020-07-16 17:37 | Event Note ---
Date: 07/16/20 I discussed extensively with the neurologist Dr. Her about the patient, and ophthalmology referral regarding patient's right eye blindness. I also tried to call [place] transfer center at [phone] and tried to contact the [place] instructor knitting Dr. Burgess [with whom ED physician Dr. Waddell has discussed this morning ] I spoke with [place] transfer center nurse Ms. Rose Hand who will contact the instructor knitting and call back. I will sign off to covering hospitalist after 7 PM.
--- NOTE | 2020-07-16 19:16 | Event Note ---
Date: 07/16/20 Pt discussed with [facility] service. Pt discussed with [place] [facility] regional construction manager Dr. Burgess. Pt does not meet criteria for transfer at this time. No urgent ophthalmologic intervention warranted. As per Dr Burgess, the patient should have complete CVA workup. At conclusion of CVA workup and treatment plan- the patient may f/u as outpatient for further care and evaluation.
[2020-07-16] MEDS ORDERED: INSULIN NPH/REGULAR 70/30 INJ SUB-Q SCH (22:00)
[2020-07-16] MEDS: FAMOTIDINE 20 MG TAB PO SCH (22:40)
[2020-07-16] MEDS: DOCUSATE SODIUM 100 MG CAP PO SCH (22:40)
--- NOTE | 2020-07-17 02:20 | Cat Scan Report ---
CTA HEAD WITH CONTRAST HISTORY: Right eye vision loss or the last 3 days COMPARISON: MRA of the brain from 07/16/2020 TECHNIQUE: Routine non-contrast CT Head, CTA of the head and post-contrast CT Head are performed. 3-D /MIP reformats postprocessed. All CT scans at this location are performed using CT dose reduction for ALARA by means of automated exposure control CONTRAST: 100 ml of Omnipaque 350 FINDINGS: CTA Head: Intracranial vertebral arteries: No significant abnormality. Basilar artery: No significant abnormality. Posterior cerebral arteries: Atherosclerotic disease in both posterior cerebral arteries at P2 and P 3 segments more on the right side Intracranial internal carotid arteries: No significant abnormality. Anterior cerebral arteries: No significant abnormality. Middle cerebral arteries: No significant abnormality. Dural venous sinuses:Not optimally opacified. No significant abnormality. Additional findings: None. IMPRESSION: No large vessel occlusion; atherosclerotic disease in both posterior cerebral arteries at P2 and P3 s egments more on the right side Signer Name: Jay Orozco MD Signed: 07/17/2020 2:16 AM Workstation Name: [id number]
[2020-07-17 07:39] LABS: BUN/Creatinine Ratio 13; Blood Urea Nitrogen 10 mg/dL (9-20); Calcium 9.1 mg/dL (8.4-10.2); Hemolysis Index 2
[2020-07-17] MEDS: CLOPIDOGREL 75 MG TAB PO SCH (09:04)
[2020-07-17] MEDS: FAMOTIDINE 20 MG TAB PO SCH (09:04)
[2020-07-17] MEDS: DOCUSATE SODIUM 100 MG CAP PO SCH (09:04)
[2020-07-17] MEDS: INSULIN REGULAR, HUMAN 100 UNITS/1 ML SUB-Q SCH ×2 (09:35→12:07)
[2020-07-17] MEDS ORDERED: INSULIN NPH/REGULAR 70/30 INJ SUB-Q SCH (10:00)
[2020-07-17] MEDS ORDERED: ASPIRIN 325 MG TAB PO SCH (10:00)
[2020-07-17] MEDS ORDERED: ENOXAPARIN 60 MG/0.6 ML INJ SUB-Q SCH (10:00)
[2020-07-17 12:57] VITALS: BP 146/93
--- NOTE | 2020-07-17 12:57 | Discharge Summary ---
Providers - Providers Date of Admission: 07/16/20 09:34 Attending physician: NICO NORIEGA 07/16/20 10:36 Consult to Case Management [CONS] Routine Services Needed at Discharge: Orthopedic Shoe Maker Notified:: case management Additional Physician Instructions: PT/OT/HHS possiblity on DC Occupational Therapy Evaluate and Treat [CONS] Routine Comment: Reason For Exam: Neuro deficits Physical Therapy Evaluation and Treat [CONS] Routine Comment: Reason For Exam: Neuro deficits Speech Therapy Evaluation and Treat [CONS] Routine Reason For Exam: swallow eval 07/16/20 10:41 Consult to Physician [CONS] Routine Comment: Consulting Provider: TRISTON YUNG Physician Instructions: Reason For Exam: CVA 07/16/20 10:46 Consult to Dietitian/Nutrition [CONS] Routine Physician Instructions: diet education Reason For Exam: Reason for Consult: Diet education Primary care physician: PHARMACY INTAKE TECHNICIAN Hospitalization Condition: Stable Pertinent studies: -07/16 CTA head shows no large vessel occlusion, arthrosclerotic disease in both posterior cerebral arteries on the right side -07/16 CT head shows advanced microvascular ischemic changes, remote small deep infarction of the left thalamus with no acute intracranial abnormalities -07/16 MRI brain with and without contrast shows remote left thalamic lacunar infarct with findings suggestive of chronic microvascular disease -07/16 MRA head without contrast shows some areas of narrowing suggesting an the internal carotid arteries bilaterally some of which may be related to flow artifact. A CTA head would be helpful for further evaluation -07/16 MRA head neck shows no significant stenosis appreciated in the unenhanced MRI of the neck. Hospital course: This is a 55-year-old gentleman with no known medical history who presented to the emergency department on 07/16 with complaints of a 2-day history of painless visual loss in his right eye, mild headache, occasional dry cough and bilateral lower extremity ataxia and right hand numbness experienced on 07/13. Upon arrival to the emergency department patient had hypertensive urgency at 171/109. Work- up in the emergency department revealed hyperglycemia (BG 409), pseudohyponatremia (sodium 129) hypochloremia at 90. Patient underwent a CT head which showed microvascular ischemic changes and a remote small deep infarct in the left thalamus. Telemetry neurology was consulted and stroke protocol was initiated. Upon further examination of his right eye in the emergency department he was found to have elevated intraocular pressures and ophthalmology recommended outpatient follow-up at [place] post discharge. His NIHSS in the emergency department was 2. Patient will be admitted to the hospital service with a consult to neurology for further work-up. We discussed with [place] printing press operator apprentice and there is no indication for transfer, no urgent intervention needed, Dr. Fox recommended, follow-up outpatient once patient is discharged from here. Patient underwent work-up for CVA which was ruled out. Patient will need to follow-up with his primary care physician and ophthalmology within 1 to 2 weeks of discharge. CVA, ruled out -07/16 CT head shows advanced microvascular ischemic change in correlation to age, remote small deep infarction left thalamus, no acute intracranial abnormalities are identified. -Neurology consulted, appreciate recommendation -S/p patient 325mg aspirin in the ED -Continue 325 mg aspirin and statin therapy -Plavix 75 mg every day for 21 days -Stroke protocol initiated -07/16 ST/OT/PT consulted; who has no recommendations at this time -S/p permissive hypertension for 24 to 48 hours -Continue Accu-Cheks AC at bedtime -Continue aspiration/fall/seizure precautions -07/16 CTA head shows no large vessel occlusion, arthrosclerotic disease in both posterior cerebral arteries on the right side -07/16 CT head shows advanced microvascular ischemic changes, remote small deep infarction of the left thalamus with no acute intracranial abnormalities -07/16 MRI brain with and without contrast shows remote left thalamic lacunar infarct with findings suggestive of chronic microvascular disease -07/16 MRA head without contrast shows some areas of narrowing suggesting an the internal carotid arteries bilaterally some of which may be related to flow artifact. A CTA head would be helpful for further evaluation -07/16 MRA head neck shows no significant stenosis appreciated in the unenhanced MRI of the neck. -07/16 lipid panel: Triglycerides 223, cholesterol 218, LDL 145, HDL 32 -07/16 bilateral carotid Doppler ultrasound shows no hemodynamically significant stenosis NASCET criteria Right eye vision loss -Follow-up with outpatient ophthalmology at [place] as soon as possible after discharge -Home health OT/PT Hyperglycemia -07/16 hemoglobin A1c 14.3 -Continue Accu-Cheks per primary care physician instructions -Continue consistent carbohydrate diet -Follow-up with primary care physician within 1 to 2 weeks of discharge -Dietary and lifestyle modifications highly encouraged Hyponatremia/pseudohyponatremia, resolved -Presented with a sodium of 129, Corrected sodium 135 -Discharge sodium 133, corrected sodium 136 Hypochloremia -Presented with a chloride of 90 -Discharge chloride 95.4 Disposition: DC-01 TO HOME OR SELFCARE Time spent for discharge: 35 Core Measure Documentation - Palliative Care Palliative Care/ Comfort Measures: Not Applicable - Core Measures Any of the following diagnoses?: none Exam - Constitutional Vitals: Temp Pulse Resp BP Pulse Ox 99.1 F 78 22 149/91 95 07/17/20 08:29 07/17/20 10:00 07/17/20 08:29 07/17/20 08:29 07/17/20 10:00 General appearance: Present: no acute distress - EENT Eyes: Absent: PERRL (R pupil nonreactive to light or accommodation, but is round with out intact EOM. Left pupil round, reactive to light and accommodation with intact EOM), EOM intact (Not intact in right eye) ENT: hearing intact, clear oral mucosa, dentition normal - Neck Neck: Present: normal ROM - Respiratory Respiratory effort: normal Respiratory: bilateral: CTA - Cardiovascular Rhythm: regular Heart Sounds: Present: S1 & S2. Absent: systolic murmur, diastolic murmur - Extremities Extremities: no ischemia, pulses intact, pulses symmetrical, No edema, normal temperature, normal color, Full ROM Peripheral Pulses: within normal limits - Abdominal General gastrointestinal: Present: soft, non-tender, non-distended, normal bowel sounds - Integumentary Integumentary: Present: clear, warm, dry - Musculoskeletal Musculoskeletal: strength equal bilaterally - Psychiatric Psychiatric: appropriate mood/affect, cooperative - Neurologic Neurologic: no CNII-XII intact (EOM not intact in right eye), focal deficits (Visual deficits to right eye), moves all extremities Plan Activity: no driving until cleared by PCP, up only with assistance, fall precautions Diet: low fat, low cholesterol, diabetic Special Instructions: record daily BP diary, record blood sugar diary, physical therapy, occupational therapy Additional Instructions: Presented nearest emergency department or contact your primary care physician if you experience worsening symptoms. You will need to follow-up with ophthalmology at [place] as soon as possible post discharge. You will be discharged with Plavix 75 mg daily for 21 days. You will be discharged with home health physical therapy and Occupational Therapy. Follow up with: PRIMARY MD ALETHA [Primary Care Provider] - 3-5 Days [facility] [Outside] - 7 Days [facility] [Outside] - 7 Days [facility] [Outside] - 7 Days [facility] [Outside] - 7 Days [facility] [Outside] - 7 Days Prescriptions: AtorvaSTATin [Lipitor] 40 mg PO QHS #30 tablet Aspirin 325 mg PO QDAY #30 tablet Insulin NPH/Regular [Novolin 70/30] 32 unit SQ BIDDIAB #1 vial Clopidogrel [Plavix] 75 mg PO QDAY #20 tablet Other Discharge Orders: Glucometer (Amb) Location: None Selected Glucometer supplies[Amb] Location: None Selected Test Strips for Blood Sugar Monitoring Location: None Selected
--- NOTE | 2020-07-17 16:58 | Vascular Lab Report ---
Bilateral Carotid Doppler Ultrasound INDICATION : cva TECHNIQUE: Grayscale and color Doppler imaging performed through the neck. COMPARISON: None FINDINGS: Right: There is no significant atherosclerotic disease. Peak systolic velocity in the CCA is 81 cm/ s. Peak systolic velocity in the proximal ICA is 78 cm/s with end-diastolic velocity of 28 cm/s. ICA to CCA ratio is less than 2. There is antegrade flow in the ECA and the vertebral artery. Left: There is no significant atherosclerotic disease. Peak systolic velocity in the CCA is 80 cm/s. Peak systolic velocity in the proximal ICA is 79 cm/s with end-diastolic velocity of 26 cm/s. ICA to CCA ratio is less than 2. There is antegrade flow in the ECA and the vertebral artery. IMPRESSION: No hemodynamically significant stenosis by NASCET criteria. Signer Name: Zi Johnson MD Signed: 07/17/2020 4:53 PM Workstation Name: [id number]
== END 2020-07-17 16:27 | disposition home or self-care (01) ==
LOC: ED 07:44 → 4A 09:34
PROVIDERS: ADMIT Internal Medicine; ATTEND Internal Medicine
DX: I63.9 Cerebral infarction, unspecified (principal); E87.1 Hypo-osmolality and hyponatremia; R73.9 Hyperglycemia, unspecified; E87.8 Other disorders of electrolyte and fluid balance, not elsewhere classified; H54.61 Unqualified visual loss, right eye, normal vision left eye; R29.702 NIHSS score 2; Z79.82 Long term (current) use of aspirin; Z79.4 Long term (current) use of insulin; Z98.890 Other specified postprocedural states; Z79.02 Long term (current) use of antithrombotics/antiplatelets; Z79.899 Other long term (current) drug therapy
CPT/HCPCS: 36415; 70450; 70496; 70544; 70547; 70553; 71045; 80048; 80061; 82550; 82962; 83036; 83735; 84484; 85025; 85610; 85670; 85730; 92610; 93005; 93306; 93880; 96372; 96374; 97162; 97165; 99285; A9270; A9577; G0378; J1650; Q9967; J1815